=== PATIENT | female | born 1985 | race Two or more races ===

== ENCOUNTER 2025-03-25 09:40 | Outpatient (RCR) | payer MEDICAID, SELFPAY ==
--- NOTE | 2025-03-25 10:00 | XR_ITS ---
Examination: CASSANDRA, hepatobiliary radioisotope scan Gallbladder ejection fraction study. Date and time of exam: March 25, 2025, 0643 hours INDICATIONS: Right upper abdominal pain one year bloating with eating Technique: 5.7 mCi of 99M Hepatolite administered. Serial imaging then obtained from immediate through 60 minutes. 1.6 mcg selective catheter Kinevac administered for gallbladder ejection fraction study. Findings: Radioisotope activity within the liver is reasonably homogenous. Gallbladder, common bile duct small bowel activity noted Impression: Gallbladder activity Abnormal gallbladder ejection fraction, 7%, normal greater than 35%
[2025-03-25 10:19] LABS: HCG Qualitative,Urine Negative
== END 2025-03-30 23:59 | disposition home or self-care (01) ==
LOC: SNUC 09:40
PROVIDERS: PCP Registered Nurse; Referring Provider Registered Nurse; Visit Provider Registered Nurse
DX: R93.2 Abnormal findings on diagnostic imaging of liver and biliary tract (principal); Z32.00 Encounter for pregnancy test, result unknown
CPT/HCPCS: 78227; 81025; A9537; J2805

== ENCOUNTER 2025-06-25 11:55 | Day surgery (SDC) | payer MEDICAID, SELFPAY ==
[2025-06-24 10:45] VITALS: BMI 30.7
[2025-06-24 11:18] LABS: Basophils # (Auto) 0.1 Thou/mm3 (0.0-0.2); Basophils % (Auto) 1 % (0-2.5); Eosinophils # (Auto) 0.1 Thou/mm3 (0.0-0.5); Eosinophils % (Auto) 1 % (0-10); Hematocrit 46.1 % (36.0-46.0); Hemoglobin 14.8 g/dL (12.0-16.0); Immature Granulocytes Auto 0.02 Thou/mm3 (0.00-0.00); Lymphocytes # (Auto) 2.9 Thou/mm3 (1.0-4.8); Lymphocytes % (Auto) 30 % (10-50); Mean Corpuscular HGB Conc 32.1 g/dl (31.0-37.0); Mean Corpuscular Hemoglobin 27.0 pg (25.0-35.0); Mean Corpuscular Volume 84 fL (80-100); Monocytes # (Auto) 0.7 Thou/mm3 (0.0-0.8); Monocytes % (Auto) 7 % (0-12); Neutrophils # (Auto) 5.8 Thou/mm3 (1.8-7.7); Neutrophils % (Auto) 60 % (37-80); Nucleated Red Blood Cell # 0.00 Thou/mm3 (0.00-0.00); Nucleated Red Blood Cell % 0 /100 WBC (0); Platelet Count 322 Thou/mm3 (140-440); RDW Standard Deviation 40.7 fL (36.4-46.3); Red Blood Count 5.49 Miln/mm3 (4.00-5.20); White Blood Count 9.6 Thou/mm3 (3.6-11.0)
[2025-06-24 11:26] LABS: HCG,Qualitative Serum Negative
[2025-06-24 11:29] LABS: Alanine Aminotransferase 42 U/L (10-49); Albumin, Serum 5.3 gm/dL (3.5-5.0); Albumin/Globulin Ratio 1.8 (1.2-2.2); Alkaline Phosphatase 89 U/L (46-116); Anion Gap 9 (7-16); Aspartate Amino Transferase 29 U/L (0-34); BUN/Creatinine Ratio 14 Ratio (12-20); Bilirubin,Total 0.6 mg/dL (0.3-1.2); Blood Urea Nitrogen 10 mg/dL (9-23); Calcium 9.5 mg/dL (8.3-10.6); Calcium (Corrected) 9.5 mg/dL (8.5-10.1); Carbon Dioxide 26.9 mMol/L (20.0-31.0); Chloride 107 mMol/L (98-107); Creatinine (Component) 0.7 mg/dL (0.6-1.3); Estimated Creatinine Clearance 119.5 mL/min (>60); Globulin 2.9 gm/dL (2.3-3.5); Glucose 84 mg/dL (74-106); Osmolality,Calculated 282 (275-295); Potassium 4.2 mMol/L (3.4-5.1); Sodium 143 mMol/L (136-145); Total Protein 8.2 gm/dL (5.7-8.2); eGFR > 60 See Note
[2025-06-25] VITALS (11 sets, daily range): BP systolic 111–148; BP diastolic 63–99; PULSE 78–92; RESP 14–20; TEMP 36.2–37.2; O2SAT 95–99; BMI 30.4
--- NOTE | 2025-06-25 14:29 | PD.SUROPNT ---
Date of Procedure 06/25/25 Pre Op Diagnosis Biliary dyskinesia Post Op Diagnosis Biliary dyskinesia Procedure Laparoscopic cholecystectomy Findings Mildly distended gallbladder with evidence of chronic cholecystitis Procedure Description Patient was brought into the operating room in supine position. After administration of general endotracheal anesthesia abdomen was prepped and draped in standard surgical manner. A Veress needle was inserted through the umbilicus and pneumoperitoneum was obtained up to 15 mmHg. The Veress needle was then removed, a 5 mm infraumbilical incision was made and the 5mm trocar was inserted. Laparoscopic camera was placed. Under direct visualization a laparoscopic camera a 10 mm trocar was placed in subxiphoid and two 5 mm trocars placed in right upper quadrant. The gallbladder was identified and was noted to be mildly distended with evidence of chronic cholecystitis. It was retracted cephalad and laterally. Dissection started near the infundibulum of gallbladder where cystic duct and gallbladder junction clearly identified. The cystic duct was circumferentially dissected off the peritoneum and surrounding inflammatory tissue. The critical view of safety was clearly demonstrated. Cystic duct was then divided between 2 endoclips proximally and one distally. The cystic artery was similarly dissected and divided. The gallbladder was then from the liver bed using electrocautery. The gallbladder was then placed inside an Endo Catch and removed from the abdomen utilizing subxiphoid trocar site. The area was copiously and thoroughly washed and irrigated, all the fluid was suctioned and the suction fluid returned clear. Hemostasis achieved using electrocautery. Endoclips noted be in place and intact without any bleeding or any leakage. Hemostasis was adequate and satisfactory. The subxiphoid trocar sites fascial defect was closed with 0 Vicryl using Endo Closure device. Instruments and trocars removed, pneumoperitoneum was evacuated and the incisions closed with 4-0 Monocryl in subcuticular fashion. Instrument needle and sponge counts were all reported to be correct X2. Patient tolerated the procedure well, was extubated, breathing spontaneously and without difficulty and was transferred to postanesthesia care in stable condition. Anesthesia GETA and local Pathology / specimen Other (Gallbladder) Estimated Blood Loss 10 Condition Stable Disposition PACU Surgeon Lizzie Land MD Surgical Staff Operation Date: 06/25/25 14:15 Case Staff PROCED TECH: Roberta Rodriguez RN First Assistant: Diane Araiza
--- NOTE | 2025-06-25 14:35 | SUR.PHASEI ---
[id number] patient arrived to recovery resting comfortably in [facility], on oxygen 8L via oxy mask, breathing unlabored, vital signs stable, denies pain and nausea, dressing intact to abdomen; dermabond, no bleeding noted, report received from Anahi ALBARADO and Emma QUICK
[2025-06-25] MEDS: fentaNYL CIT INJ 50 mCg/ML AMP 2ML IVP (15:15)
--- NOTE | 2025-06-25 16:38 | SUR.PHASEII ---
[id number] Patient meets discharge criteria from recovery, awake and alert, breathing unlabored, vital signs stable, denies pain and nausea, dressing intact; no bleeding noted, voided in the restroom prior to discharge, assisted with dressing into her clothing by her , discharge instructions given to patient and patients with the assistance of the telephone poker dealer Dilshad ID# [id number], signed discharge instructions. Patient given all her belongings prior to discharge, transported via wheelchair and left in a private vehicle.
== END 2025-06-25 16:38 | disposition home or self-care (01) ==
PROVIDERS: PCP Registered Nurse; Referring Provider Surgery; Visit Provider Surgery
PROC: 0FT44ZZ Resection of Gallbladder, Percutaneous Endoscopic Approach (ICD-10-PCS; CPT 47562; principal; 2025-06-25 14:00)
DX: K80.10 Calculus of gallbladder with chronic cholecystitis without obstruction (principal)
CPT/HCPCS: 47562; 36415; 80053; 84703; 85025; A4217; A4649; J0131; J0694; J1885; J2704; J3010; J3490